=== PATIENT | male | born 1995 | race Caucasian/White ===

== ENCOUNTER 2018-07-05 08:32 | Emergency (ER) | payer MEDICAID ==
[~2018-07-05] VITALS: Ht 165.1 cm; Wt 61.2 kg
[2018-07-05 08:36] VITALS: BP_SYST 124
[2018-07-05] MEDS ORDERED: IBUPROFEN 600 MG TABLET PO ONE (09:00)
[2018-07-05] MEDS ORDERED: IBUPROFEN 600 MG TABLET ONE (09:25)
[2018-07-05 11:05] VITALS: BP_SYST 124
== END 2018-07-05 11:05 | disposition home or self-care (01) ==
LOC: SED 08:32
DX: M54.5 Low back pain (principal); M54.2 Cervicalgia; V43.52XA Car driver injured in collision with other type car in traffic accident, initial encounter; Y93.89 Activity, other specified; Y92.411 Interstate highway as the place of occurrence of the external cause; Y99.8 Other external cause status
CPT/HCPCS: 72040-TC; 72100-TC; 99284